=== PATIENT | female | born 1955 | race Caucasian/White ===

== ENCOUNTER 2020-02-07 11:48 | Emergency (ER) | payer MEDICARE, SELFPAY ==
--- NOTE | ~2020-02-07 | XR_ITS ---
EXAMINATION: XR chest 2V EXAM DATE: 02/07/2020 12:23 INDICATION: Cough. Exposure to pneumonia. TECHNIQUE: Frontal and lateral projections of the chest obtained and reviewed. There is no prior ernestine dy for comparison. FINDINGS: The lungs are clear. There are no pleural effusions. The cardiomediastinal silhouette is within normal limits. There is no pneumothorax suspected. There is upper lumbar fusion hardware. T here are cholecystectomy clips. Mild hyperinflation. IMPRESSION: No acute cardiopulmonary findings. Reviewed, dictated and finalized at location A.
--- NOTE | 2020-02-07 11:53 | ED.GENADULT ---
HPI - General Adult General Chief complaint: Upper Respiratory Infection Stated complaint: sinus and allergies Time Seen by Provider: 02/07/20 11:52 Source: patient Mode of arrival: ambulatory Limitations: no limitations History of Present Illness HPI narrative: 64-year-old female patient presents to the [facility] with complaints of cold symptoms and cough for the past week. Patient states that she recently traveled up here from [place] and thinks that her allergies are aggravating her. Patient states she has had some drainage to the back of her throat causing her to cough. Patient states she is also had some pressure to the face. Denies any fevers, body aches or chills. Patient states that she is an active smoker and has been smoking for about a pack a day for the past 30+ years. Patient denies any chest pain or shortness of breath. Denies any abdominal pain, nausea, vomiting or diarrhea. Patient states that she is visiting her sister which recently had pneumonia and had been tested for COVID but was negative. Patient states she has been using her sisters nebulizer as well to help with the coughing. Patient states she does have an albuterol inhaler that she has been using as well as [id number] Tylenol and sinus medication. Related Data Allergies Allergy/AdvReac Type Severity Reaction Status Date / Time Penicillins Allergy Rash Verified 02/07/20 12:17 sulfamethoxazole Allergy Hives Verified 02/07/20 12:18 [From Bactrim] trimethoprim [From Bactrim] Allergy Hives Verified 02/07/20 12:18 Review of Systems Review of Systems: Narrative: CONSTITUTIONAL: Denies fever, chills, or sweats. EYES: Denies visual changes, redness, or discharge. ENT: Positive rhinorrhea, congestion, denies sore throat, or otalgia. CARDIOVASCULAR: Denies chest pain, palpitations, or edema. RESPIRATORY: Positive productive cough or dyspnea. GASTROINTESTINAL: Denies abdominal pain, nausea, vomiting, or diarrhea. GENITOURINARY: Denies dysuria or hematuria. SKIN: Denies rash or itching. MUSCULOSKELETAL: Denies back pain, joint pain, or myalgia. NEUROLOGIC: Denies headache, numbness, or weakness. PSYCHIATRIC: Denies anxiety or depression. [facility] Past Medical History Medical History Anxiety GERD (gastroesophageal reflux disease) Surgical History Surgical History Hx of cholecystectomy Previous back surgery spacer put in lumbar spine Social History Social History Smoking status: Current every day smoker Tobacco type: cigarettes Comments At the time of my signature I agree with nursing past medical history, surgical, social, and family history. There is no relevant family history pertinent to the presenting complaint. Exam Narrative: Exam Narrative: GENERAL: Well-appearing, well-nourished, and in no acute distress. HEAD: Normocephalic, atraumatic. Tenderness noted to frontal maxillary sinuses on palpation EYES: PERRLA and EOMI. ENT: Nares with erythema and edema noted bilaterally, no rhinorrhea or epistaxis. Mucous membranes moist. Posterior pharynx with no erythema, tonsil enlargement, exudates or lesions present. Bilateral TMs are clear no erythema or foreign bodies to the canal. NECK: Supple. No lymphadenopathy CHEST: Clear to auscultation. No respiratory distress. Patient able talk in clear complete sentences. No tripoding noted. HEART: Regular rate and rhythm. No murmur heard. Normal peripheral pulses. ABDOMEN: Soft, nontender, nondistended, normal active bowel sounds. EXTREMITIES: Normal range of motion. No edema. SKIN: Warm, dry, no rash. NEURO: No focal deficits. Alert and oriented x3. Course Reevaluation(s) Reevaluation #1: Reevaluated patient after her x-ray resulted. Discussed with her that her x-ray is negative for pneumonia and her influenza is negative as we
[2020-02-07 12:02] VITALS: BP 141/72; PULSE 86; RESP 16; TEMP 37; O2SAT 98
== END 2020-02-07 12:38 | disposition home or self-care (01) ==
PROVIDERS: Emergency Provider Nurse Practitioner Family
DX: J06.9 Acute upper respiratory infection, unspecified (principal); J01.10 Acute frontal sinusitis, unspecified; Z20.828 Contact with and (suspected) exposure to other viral communicable diseases; F41.9 Anxiety disorder, unspecified; K21.9 Gastro-esophageal reflux disease without esophagitis; F17.200 Nicotine dependence, unspecified, uncomplicated
CPT/HCPCS: 71046; 87804; 99213; G0463

== ENCOUNTER 2021-04-09 14:46 | Emergency (ER) | payer MEDICARE, MEDICAID, SELFPAY ==
--- NOTE | ~2021-04-09 | XR_ITS ---
EXAMINATION: XR chest 2V DATE: 04/09/2021 16:07 INDICATION: Cough. TECHNIQUE: Frontal and lateral views of the chest were obtained. COMPARISON: Chest 2 views 02/07/2020 FINDINGS: There are airspace opacities in lingula. No pleural effusion or pneumothorax. The heart siz e is normal. Calcified left hilar and mediastinal lymph nodes are consistent with old granulomatous d isease. There are changes of anterior and posterior fusion procedures in lumbar spine. Surgical clips in the right upper quadrant are likely from cholecystectomy. IMPRESSION: 1. Airspace opacities in lingula, consistent with atelectasis versus pneumonia. Reviewed, dictated and finalized at location A. [employer]IL[employer] SPECIALIST
[2021-04-09 15:10] VITALS: BP 140/83; PULSE 74; RESP 20; TEMP 36.7; O2SAT 98
--- NOTE | 2021-04-09 15:39 | ED.URI ---
HPI - URI/Sore Throat General Chief Complaint: Upper Respiratory Infection Stated Complaint: Cough/Sneezing Source: patient Mode of arrival: ambulatory Limitations: no limitations History of Present Illness HPI Narrative: Patient is a 66-year-old female who presents with cough and congestion x2+ weeks. She reports facial pain and pressure. She reports dental extractions this week and she is currently taking clindamycin. She continues with productive cough. She denies chest pain or shortness of breath. She reports Covid vaccinated x2. MD elicited complaint: cough Related Data Home Medications Medication Instructions Recorded Confirmed albuterol sulfate 1 inh INHALATION QID PRN 02/07/20 04/09/21 buspirone 15 mg PO TID 04/09/21 04/09/21 cephalexin 500 mg PO QID 04/09/21 04/09/21 famotidine 20 mg PO BID 04/09/21 04/09/21 ibuprofen 800 mg PO TID 04/09/21 04/09/21 levothyroxine 50 mcg PO DAILY 04/09/21 04/09/21 Allergies Allergy/AdvReac Type Severity Reaction Status Date / Time Penicillins Allergy Rash Verified 04/09/21 16:19 sulfamethoxazole Allergy Hives Verified 04/09/21 16:19 [From Bactrim] trimethoprim [From Bactrim] Allergy Hives Verified 04/09/21 16:19 Review of Systems Review of Systems: CONSTITUTIONAL: Denies fever, chills, or sweats. EYES: Denies visual changes, redness, or discharge. ENT: Reports congestion and rhinorrhea, denies sore throat CARDIOVASCULAR: Denies chest pain, palpitations, or edema. RESPIRATORY: Reports cough, denies shortness of breath GASTROINTESTINAL: Denies abdominal pain, nausea, vomiting, or diarrhea. GENITOURINARY: Denies dysuria or hematuria. SKIN: Denies rash or itching. MUSCULOSKELETAL: Denies back pain, joint pain, or myalgia. NEUROLOGIC: Denies headache, numbness, dizziness, or weakness. PSYCHIATRIC: Denies anxiety or depression. [facility] Past Medical History Medical History (Updated 04/09/21 @ 16:04 by EMMA Son) Anxiety GERD (gastroesophageal reflux disease) Surgical History Surgical History Hx of cholecystectomy Previous back surgery spacer put in lumbar spine Social History Social History Smoking status: Current every day smoker Tobacco type: cigarettes Comments At the time of signature, I have reviewed and agree with nursing past medical, surgical, social, and family history unless otherwise noted. Please see nursing chart for further information. There is no relevant family history pertinent to the presenting complaint. Exam Narrative: GENERAL: Well-appearing, well-nourished, and in no acute distress. HEAD: Normocephalic, atraumatic. EYES: EOMI. No redness or drainage. Conjunctiva are normal. ENT: Mucous membranes pink and moist. Nares clear. No rhinorrhea. TMs normal bilaterally. Throat normal. Uvula midline. NECK: AROM. Supple. No lymphadenopathy. CHEST: No respiratory distress. Expiratory wheeze, coarse lung sounds bilaterally HEART: Regular rate and rhythm. No murmur appreciated. Normal peripheral pulses. EXTREMITIES: Normal range of motion. No edema. SKIN: Warm, dry, no rash. NEURO: No focal deficits. Alert and oriented x3. Gait steady. PSYCH: Normal affect. No signs of depression or anxiety. Course Vital Signs Vital signs: Vital Signs Temperature 36.7 C 04/09/21 15:10 Pulse Rate 74 04/09/21 15:10 Respiratory Rate 20 04/09/21 15:10 Blood Pressure 140/83 04/09/21 15:10 Pulse Oximetry 98 04/09/21 15:10 Temperature 36.7 C 04/09/21 15:10 Pulse Rate 74 04/09/21 15:10 Respiratory Rate 20 04/09/21 15:10 Blood Pressure 140/83 04/09/21 15:10 Pulse Oximetry 98 04/09/21 15:10 Reviewed MDM - URI/Sore Throat MDM Narrative Medical decision making narrative: Patient's chest x-ray shows atelectasis versus pneumonia. Patient started on antibiotics at this time. Patient is aware t
== END 2021-04-09 16:25 | disposition home or self-care (01) ==
PROVIDERS: Emergency Provider Nurse Practitioner; PCP Nurse Practitioner Family
DX: J06.9 Acute upper respiratory infection, unspecified (principal); F17.200 Nicotine dependence, unspecified, uncomplicated
CPT/HCPCS: 71046; 99213; G0463

== ENCOUNTER → 2021-05-08 12:31 | Outpatient (CLI) | payer MEDICARE, MEDICAID, SELFPAY ==
--- NOTE | ~2021-05-08 | XR_ITS ---
EXAMINATION: XR chest 2V DATE: 05/08/2021 12:47 INDICATION: Cough. Pneumonia. TECHNIQUE: Frontal and lateral views of the chest were obtained. COMPARISON: Chest 2 views 04/09/2021, 02/07/2020 FINDINGS: Calcified pulmonary nodules and calcified hilar lymph nodes are consistent with old granulo matous disease. There are airspace opacities in lingula. There is mild scarring at the lung apices. N o pleural effusion or pneumothorax. The heart size is normal. There are changes of anterior and poste rior fusion procedures in lumbar spine. Surgical clips in the right upper quadrant are likely from ch olecystectomy. IMPRESSION: 1. Persistent airspace opacities in lingula, consistent with atelectasis versus pneumonia. 2. Stable mild scarring at the lung apices. Reviewed, dictated and finalized at location A. 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
== END ==
PROVIDERS: PCP Nurse Practitioner Family; Visit Provider Nurse Practitioner Family
DX: R05.9 Cough, unspecified (principal); R91.8 Other nonspecific abnormal finding of lung field
CPT/HCPCS: 71046

== ENCOUNTER 2021-10-02 13:21 | Emergency (ER) | payer MEDICARE, MEDICAID, SELFPAY ==
[2021-10-02 13:33] VITALS: BP 115/65; PULSE 91; RESP 20; TEMP 37.4; O2SAT 98
--- NOTE | 2021-10-02 14:23 | ED.GENADULT ---
HPI - General Adult General Chief complaint: Upper Respiratory Infection Stated complaint: Sore Throat/Ear Pain Source: patient Mode of arrival: ambulatory Limitations: no limitations History of Present Illness HPI narrative: Patient presents for evaluation of sore throat for the past four days. She now has right sided otalgia and right sided cervical lymphadenopathy. She is a chronic productive cough of clear sputum, unchanged. She attributes her cough to smoking. She smokes approximately 1 pack/day. No fever, chills, nausea, vomiting, body aches. No recent sick contacts to her knowledge. She has been vaccinated for COVID. No additional complaints or concerns Related Data Home Medications Medication Instructions Recorded Confirmed albuterol sulfate 90 mcg/actuation 1 inh inhalation QID PRN Shortness 02/07/20 04/09/21 aerosol inhaler Of Breath Or Wheezing buspirone 15 mg tablet 15 mg PO TID 04/09/21 04/09/21 famotidine 20 mg tablet 20 mg PO BID 04/09/21 04/09/21 ibuprofen 800 mg tablet 800 mg PO TID 04/09/21 04/09/21 levothyroxine 50 mcg tablet 50 mcg PO DAILY 04/09/21 04/09/21 Allergies Allergy/AdvReac Type Severity Reaction Status Date / Time Penicillins Allergy Rash Verified 10/02/21 14:33 sulfamethoxazole Allergy Hives Verified 10/02/21 14:33 [From Bactrim] trimethoprim [From Bactrim] Allergy Hives Verified 10/02/21 14:33 Review of Systems Review of Systems: CONSTITUTIONAL: Denies fever, chills, or sweats. EYES: Denies visual changes, redness, or discharge. ENT: Reports right sided otalgia and sore throat. Reports right-sided cervical lymphadenopathy. Denies rhinorrhea CARDIOVASCULAR: Denies chest pain, palpitations, or edema. RESPIRATORY: Reports chronic productive cough of clear sputum, unchanged. Denies dyspnea. GASTROINTESTINAL: Denies abdominal pain, nausea, vomiting, or diarrhea. GENITOURINARY: Denies dysuria or hematuria. SKIN: Denies rash or itching. MUSCULOSKELETAL: Denies back pain, joint pain, or myalgia. NEUROLOGIC: Denies headache, numbness, dizziness, or weakness. PSYCHIATRIC: Denies anxiety or depression. [facility] Past Medical History Medical History Anxiety GERD (gastroesophageal reflux disease) Surgical History Surgical History Hx of cholecystectomy Previous back surgery spacer put in lumbar spine Family History Family History (Updated 10/02/21 @ 14:27 by ABIMBOLA GradyP, ) Mother Family history non-contributory Social History Social History Smoking packs per day: 1 Smoking cigarettes per day: 20.0 Smoking status: Current every day smoker Tobacco type: cigarettes Alcohol intake: never Substance use: never Gender identity (if verbalized by the patient): Female Spiritual care concerns: No Exam Narrative: GENERAL: Well-appearing, well-nourished, and in no acute distress. HEAD: Normocephalic, atraumatic. EYES: PERRLA and EOMI. ENT: Nares clear, no rhinorrhea or epistaxis. Mucous membranes moist. Oropharynx without tonsillar hypertrophy exudate or other lesions. There is posterior pharyngeal erythema. Uvula is midline Bilateral TMs pearly pang nonbulging NECK: Supple. No adenopathy or masses. No carotid bruits or JVD CHEST: Clear to auscultation. No respiratory distress. No wheezes rales or rhonchi HEART: Regular rate and rhythm. No murmur heard. Normal peripheral pulses. ABDOMEN: Soft, nontender, nondistended, normal active bowel sounds. EXTREMITIES: Normal range of motion. No edema. SKIN: Warm, dry, no rash. NEURO: No focal deficits. Alert and oriented x3. PSYCH: Normal mood and affect. Course Course Emergency Course: Is a 66-year-old female who present with complaints of a sore throat. Strep was negative. However, there is clinical suspicion for strep p
== END 2021-10-02 15:20 | disposition home or self-care (01) ==
PROVIDERS: Emergency Provider Nurse Practitioner; PCP Nurse Practitioner Family
DX: J02.9 Acute pharyngitis, unspecified (principal); F17.210 Nicotine dependence, cigarettes, uncomplicated; K21.9 Gastro-esophageal reflux disease without esophagitis; F41.9 Anxiety disorder, unspecified
CPT/HCPCS: 87081; 87880; 99213; G0463

== ENCOUNTER 2023-05-01 13:08 | Emergency (ER) | payer MEDICARE, MEDICAID, SELFPAY ==
[2023-05-01 13:15] VITALS: BP 143/64; PULSE 70; RESP 16; TEMP 36.6; O2SAT 97
--- NOTE | 2023-05-01 13:38 | ED.URI ---
HPI - URI/Sore Throat General Chief Complaint: Upper Respiratory Infection Stated Complaint: cough/throat Source: patient, RN notes reviewed and old records reviewed Mode of arrival: ambulatory Limitations: no limitations History of Present Illness HPI Narrative: 60-year-old female presents to [facility] with complaints productive cough, sinus congestion that started over 2 weeks ago. patient taking [id number] medications with no relief. Patient denies weakness, dizziness, chest pain, shortness of breath MD elicited complaint: cough and nasal congestion Onset (ago): week(s) (2) Consistency: constant Severity: moderate Related Data Home Medications Medication Instructions Recorded Confirmed albuterol sulfate 90 mcg/actuation 1 inh inhalation QID PRN Shortness 02/07/20 04/09/21 aerosol inhaler Of Breath Or Wheezing buspirone 15 mg tablet 15 mg PO TID 04/09/21 04/09/21 famotidine 20 mg tablet 20 mg PO BID 04/09/21 04/09/21 ibuprofen 800 mg tablet 800 mg PO TID 04/09/21 04/09/21 levothyroxine 50 mcg tablet 50 mcg PO DAILY 04/09/21 04/09/21 escitalopram oxalate 20 mg tablet mg 05/01/23 Allergies Allergy/AdvReac Type Severity Reaction Status Date / Time Penicillins Allergy Rash Verified 05/01/23 13:22 sulfamethoxazole Allergy Hives Verified 05/01/23 13:22 [From Bactrim] trimethoprim [From Bactrim] Allergy Hives Verified 05/01/23 13:22 Review of Systems Constitutional: Constitutional: Reports no additional constitutional complaints, Denies body ache(s), Denies chills, Denies fatigue, Denies fever(s) and Reports headache(s) Eyes: Eyes: Reports no additional eye complaints and Denies blurry vision ENT: Reports system reviewed and no additional complaints, except as documented, Reports as per HPI, Denies vertigo, Denies dizziness, Denies ear discharge, Denies otalgia, Denies facial pain, Denies headache(s), Reports nasal congestion, Reports nasal discharge ( thick yellow), Reports sinus pain, Reports sinus pressure and Denies sore throat Cardiovascular: Cardiovascular: Reports no additional cardiovascular complaints, Denies chest pain, Denies chest pain at rest, Denies rapid heart rate and Denies dyspnea Respiratory: Respiratory: Reports no additional respiratory complaints, Reports chest congestion, Reports cough, Denies pain on inspiration, Reports pain with cough and Denies dyspnea Gastrointestinal: Gastrointestinal: Denies abdominal pain, Denies diarrhea, Denies nausea and Denies vomiting Integumentary/Breasts: Skin/Breast: Denies rash Neurologic: Reports system reviewed and no additional complaints, except as documented, Denies vertigo, Denies dizziness and Denies headache(s) Endocrine: Endocrine: Denies fatigue PMFSH Past Medical History Medical History (Updated 05/01/23 @ 13:41 by Romi Benedict APRN) Anxiety GERD (gastroesophageal reflux disease) Surgical History Surgical History Hx of cholecystectomy Previous back surgery spacer put in lumbar spine Family History Family History Mother Family history non-contributory Social History Social History Smoking packs per day: 1 Smoking cigarettes per day: 20.0 Smoking status: Current every day smoker Tobacco type: cigarettes Alcohol intake: never Substance use: never Gender identity (if verbalized by the patient): Female Spiritual care concerns: No Comments At the time of my signature, I reviewed and agree with the nursing past medical, surgical, social, and family history. There is no relevant family history pertinent to the patient complaint. Exam Const: General: cooperative, healthy appearing, no acute distress and well nourished Nutritional Appearance: well nourished Orientation/consciousness: patient oriented x3 Limitations: no limitations HE
== END 2023-05-01 13:43 | disposition home or self-care (01) ==
PROVIDERS: Emergency Provider Registered Nurse; PCP Nurse Practitioner Family
DX: J20.9 Acute bronchitis, unspecified (principal); F17.210 Nicotine dependence, cigarettes, uncomplicated; F41.9 Anxiety disorder, unspecified; K21.9 Gastro-esophageal reflux disease without esophagitis
CPT/HCPCS: 99213; G0463

== ENCOUNTER 2024-11-29 12:52 | Emergency (ER) | payer MEDICARE, MEDICAID, SELFPAY ==
--- NOTE | ~2024-11-29 | XR_ITS ---
EXAM: XR hip LT 2V w AP pelvis DATE: 11/29/2024 13:17 HISTORY: pain . COMPARISON: None available. FINDINGS: Osteopenia. Partially visualized lumbar fusion hardware. No fracture or dislocation. No ly tic or blastic lesion. Lumbar degenerative disc disease. Mild bilateral hip osteoarthritis. Mild scat tered pelvic and hip enthesopathy No erosion or periosteal change. Vascular calcifications. IMPRESSION: No acute osseous finding in the pelvis or left hip. Reviewed, dictated and finalized at location K.
--- OUTSIDE RECORDS SUMMARY | 2024-11-29 12:55 | XMS_ITS ---
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 Start: 06-01-2024 07:49-0500 End: 06-01-2024 23:59-0500 Patient encounter procedure MD Ravindra Yin MD [facility] Start: 01-28-2024 09:42-0400 End: 01-28-2024 23:59-0400 Patient encounter procedure MD Ravindra Yin MD [facility] Start: 01-21-2024 12:45-0400 Patient encounter procedure MD Ravindra Yin MD [facility] Start: 01-21-2024 09:45-0400 End: 01-21-2024 23:59-0400 Patient encounter procedure MD Ravindra Yin MD [facility] Start: 01-07-2024 12:090400 End: 01-08-2024 23:59-0400 Patient encounter procedure [facility] Start: 12-11-2023 07:59-0400 End: 12-11-2023 23:59-0400 Patient encounter procedure MD Ravindra Yin MD [facility] Start: 12-10-2023 [id number] End: 12-10-2023 23:59-0400 Patient encounter procedure [facility] Medications Current Medications Medication Drug Class(es) Dates Sig (Normalized) Sig (Original) alendronate (1 source) Bisphosphonate Start: 12-11-2023 Completed/Discontinued Medications Medication Drug Class(es) Dates Sig (Normalized) Sig (Original) acetaminophen / HYDROcodone (2 sources) Opioid Agonist Start: 01-20-2024 End: 01-27-2024 Additional Source Comments FOR RECORDS PERTAINING TO PATIENTS WHO ARE OR HAVE BEEN ENROLLED IN A CHEMICAL DEPENDENCY/SUBSTANCEABUSE PROGRAM, SOME INFORMATION MAY BE OMITTED. This clinical summary was aggregated from multiple sources. Caution should be exercised in using it in the provision of clinical care. This summary normalizes information from multiple sources, and as a consequence, information in this document may materially change the coding, format and clinical context of patient data. In addition, data may be omitted in some cases. CLINICAL DECISIONS SHOULD BE BASED ON THE PRIMARY CLINICAL RECORDS. [employer] provides no warranty or guarantee of the accuracy or completeness of information in this document.The following information is based on time limited clinical information
--- OUTSIDE RECORDS SUMMARY | 2024-11-29 12:55 | XMS_ITS | Data Portability ---
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 Plan of Treatment Reminders Order Date Submit Date Provider Last Modified By Organization Details Last Modified Time Details Appointments None recorde d. Lab CBC w/ auto diff 2023 024 [facility], [address] [place] [address], [address], 12:13:47 CMP, serum or plasma 2023 024 [facility], [address] [place] [address], [address], 4 12:13:44 lipid panel, serum 2023 024 [facility], [address] [place] [address], [address], 4 12:13:43 TSH, ultra-s ensitiv e, serum 2023 024 [facility], [address] [place] [address], [address], 4 12:13:46 CBC w/ auto diff 2023 024 [facility], [address] [place] [address], [address], 5 03:09:05 CMP, serum or plasma 2023 024 [facility], [address] [place] [address], [place], [address], 5 03:09:04 lipid panel, serum 2023 024 [facility], [address] [place] [address], [place], [address], 5 03:09:03 TSH, ultra-s ensitiv e, serum 2023 024 [facility], [address] [place] [address], [place], [address], 5 03:09:05 Referral None recorde d. Procedures None recorde d. Surgeries None recorde d. Imaging None recorde d. Medication Orders flutica sone propion ate 50 mcg/act uation nasal spray,s uspensi on 2024 025 [facility], [address] [place], [address], 5 14:57:06 Astepro Allergy 205.5 mcg (0.15 %) nasal spray 2024 025 [facility], [address] [place], [address], 5 14:58:29 escital opram 20 mg tablet 2024 025 [facility], [address] [place], [address], 5 14:57:06 buspiro ne 15 mg tablet 2024 025 [facility], [address] [place], [address], 5 14:57:06 famotid ine 20 mg tablet 2024 025 [facility], [address] [place], [address], 5 14:57:10 levothy roxine 50 mcg tablet 2024 025 [facility], [address] [place], [address], 5 14:57:04 albuter ol sulfate HFA 90 mcg/act uation aerosol inhaler 2024 [facility], [address] [place], [address], 5 14:57:07 doxycyc line hyclate 100 mg capsule 2023 [facility], [address] [place] [address], [address], 5 14:22:56 benzona benedict 100 mg capsule 2023 025 [facility], [address] [place], [address], 5 14:22:48 flutica sone propion ate 50 mcg/act uation nasal spray,s [facility]pensi on [facility]23 [facility] [address] [place], [address], 5 14:23:18 escital opram 20 mg tablet 2023 [facility], [address] [place], [address], 4 17:34:46 buspiro ne 15 mg tablet 2023 024 [facility], [address] [place], [address], 4 17:34:51 famotid ine 20 mg tablet 2023 024 [facility], [address] [place], [address], 4 17:34:52 levothy roxine 50 mcg tablet 2023 024 [facility], [address] [place], [address], 4 23:32:45 albuter ol sulfate HFA 90 mcg/act uation aerosol inhaler 2023 025 [facility], [address] [place], [address], 5 14:23:48 flutica sone propion ate 50 mcg/act uation nasal spray,s uspensi on 2023 024 [facility], [address] [place], [address], 4 11:13:38 escital opram 20 mg tablet 2023 024 [facility], [address] [place], [address], 4 11:13:45 buspiro ne 15 mg tablet 2023 024 [facility], [address] [place], [address], 4 11:13:50 famotid ine 20 mg tablet 2023 024 [facility], [address] [place], [address], 4 11:13:40 levothy roxine 50 mcg tablet 2023 024 [facility], [address] [place], [address], 4 11:13:40 albuter ol sulfate HFA 90 mcg/act uation aerosol inhaler 2023 024 [facility], [address] [place] [address], [address], 5 14:23:02 flutica sone propion ate 50 mcg/act uation nasal spray,s uspensi on 2022 023 [facility], [address] [place] [address], [address], 3 11:21:46 doxycyc line monohyd rate 100 mg capsule 2022 023 [facility], [address] [place] [address], [address], 4 10:50:26 escital opram 20 mg tablet 2022 023 [facility], [address] [place] [address], [address], 3 11:20:49 buspiro ne 15 mg tablet 2022 023 [facility], [address] [place] [address], [address], 3 11:20:49 famotid ine 20 mg tablet 2022 023 [facility], [address] [place] [address], [address], 3 11:20:47 levothy roxine 50 mcg tablet 2022 023 [facility], [address] [place] [address], [address], 3 11:20:46 albuter ol sulfate HFA 90 mcg/act uation aerosol inhaler 2022 023 [facility], [address] [place] [address], [address], 14:23:02 Patient TargetsNo targets recorded. Patient Instructions Encounter Date Encounter Id Patient Instructions Last Modified By Organization Details Last Modified Time 01/24/2023 [id number] back pain: care instructions Not available 01/24/2023 11:20:29 back care and preventing injuries: care instructions Not available 01/24/2023 11:20:28 Quitting Tobacco : Care Instructions Not available 01/24/2023 11:20:29 A healthy lifest yle: care instructions Not available 01/24/2023 11:20:28 learning about m ood disorders Not available 01/24/2023 11:20:29 gastroesophageal reflux disease (GERD): care instructions Not available 01/24/2023 11:20:29 hypothyroidism: care instructions Not available 01/24/2023 11:20:28 reactive airway disease: care instructions Not available 01/24/2023 11:20:28 COPD and asthma: care instructions Not available 01/24/2023 11:20:28 Cont on current medications. Not available 01/24/2023 11:08:50 f/u 6 months DWP barriers to care: none Not available 01/24/2023 11:07:35 08/01/2023 [id number] back pain: care instructions Not available 08/01/2023 11:13:30 back care and preventing injuries: care instructions Not available 08/01/2023 11:13:30 Quitting Tobacco : Care Instructions Not available 08/01/2023 11:13:30 A healthy lifest yle: care instructions Not available 08/01/2023 11:13:30 learning about m ood disorders Not available 08/01/2023 11:13:30 gastroesophageal reflux disease (GERD): care instructions Not available 08/01/2023 11:13:30 hypothyroidism: care instructions Not available 08/01/2023 11:13:30 reactive airway disease: care instructions Not available 08/01/2023 11:13:30 COPD and asthma: care instructions Not available 08/01/2023 11:13:30 Cont on current medications. - Avoid heavy lifting and over-exertion. - Avoid bed-rest do some gentle stretching and continue with normal activities. - Use ice to relieve pain, 15 minutes every 2 4 hours. - Use heat to relax muscles, 15 minutes every 2 4 hours. - Sleep on a firm surface and avoid lying on the sofa. Not available 08/01/2023 11:05:51 f/u 6 months DWP barriers to care: none Not available 08/01/2023 11:14:02 02/17/2024 [id number] back pain: care instructions Not available 02/17/2024 17:34:38 back care and preventing injuries: care instructions Not available 02/17/2024 17:34:38 Quitting Tobacco : Care Instructions Not available 02/17/2024 17:34:38 A healthy lifest yle: care instructions Not available 02/17/2024 17:34:39 learning about m ood disorders Not available 02/17/2024 17:34:38 gastroesophageal reflux disease (GERD): care instructions Not available 02/17/2024 17:34:38 hypothyroidism: care instructions Not available 02/17/2024 17:34:38 reactive airway disease: care instructions Not available 02/17/2024 17:34:38 COPD and asthma: care instructions Not available 02/17/2024 17:34:39 Increase intake of fresh fruits, and vegetables. Avoid packaged foods and fast foods. Follow a low salt diet, drink at least 8-10 8oz glasses of water a day, exercise most days of the week. Take all medications as prescribed. Keep appointments with PCP and all specialists. Not available 02/19/2024 15:50:02 f/u 6 months DWP barriers to care: none Not available 02/17/2024 17:13:01 03/23/2024 [id number] Acute Sinusitis: Care Instructions Not available 03/23/2024 15:30:44 bronchitis: care instructions Not available 03/23/2024 15:30:44 Mucinex and othe r OTC cold/cough remedies are fine to take, increase fluids and have good handwashing. Get plenty of rest. Not available 03/23/2024 15:31:10 Take all antibio tics prescribed to you. If any fever or increase in pain, call/return to office. Not available 03/23/2024 15:31:16 08/17/2024 [id number] back pain: care instructions Not available 08/17/2024 14:56:58 back care and preventing injuries: care instructions Not available 08/17/2024 14:56:58 Quitting Tobacco : Care Instructions Not available 08/17/2024 14:56:58 A healthy lifest yle: care instructions Not available 08/17/2024 14:56:58 learning about m ood disorders Not available 08/17/2024 14:56:58 gastroesophageal reflux disease (GERD): care instructions Not available 08/17/2024 14:56:58 hypothyroidism: care instructions Not available 08/17/2024 14:56:58 reactive airway disease: care instructions Not available 08/17/2024 14:56:57 COPD and asthma: care instructions Not available 08/17/2024 14:56:58 Increase intake of fresh fruits, and vegetables. Avoid packaged foods and fast foods. Follow a low salt diet, drink at least 8-10 8oz glasses of water a day, exercise most days of the week. Take all medications as prescribed. Keep appointments with PCP and all specialists. Not available 08/17/2024 14:31:35 f/u 6 months DWP barriers to care: none Not available 08/17/2024 14:31:35 Reason for Referral None Reported. Results Created Date Observation Date Name Description Value Unit Range Abnormal Flag Note LastModifiedBy Organization Detail LastModifiedTime 03/09/20 24 03/10/2024 LIPID PANEL cholesterol, total 211 mg/dL 100-19 9 above high normal Not Available [facility] ([facility]) [address] [place], [address], 03/10/2024 12:13:43 03/09/20 24 03/10/2024 LIPID PANEL triglyceride s 127 mg/dL 0-149 Not Available [facility] ([facility]) [address] [place], [address], 03/10/2024 12:13:43 03/09/20 24 03/10/2024 LIPID PANEL HDL cholesterol 58 mg/dL >39 Not Available [facility] ([facility]) [address] [place], [address], 03/10/2024 12:13:43 03/09/20 24 03/10/2024 LIPID PANEL VLDL cholesterol lourdes 23 mg/dL 5-40 Not Available [facility] ([facility]) [address] [place], [address], 03/10/2024 12:13:43 03/09/2003/10/2024 LIPID PANEL LDL chol calc ([facility]) 130 mg/dL 0-99 above high normal Not Available [facility] ([facility]) [address] [place], [address], 03/10/2024 12:13:43 03/09/20 24 03/10/2024 COMP. METAB OLIC PANEL (14) glucose 137 mg/dL 70-99 above high normal Not Available [facility] ([facility]) [address] [place], [address], 03/10/2024 12:13:44 03/09/20 24 03/10/2024 COMP. METAB OLIC PANEL (14) BUN 16 mg/dL 8-27 Not Available [facility] ([facility]) [address] [place], [address], 03/10/2024 12:13:44 03/09/20 24 03/10/2024 COMP. METAB OLIC PANEL (14) creatinine 1.09 mg/dL 0.57-1 .00 above high normal Not Available [facility] ([facility]) [address] [facility], [place], [address], 03/10/2024 12:13:44 03/09/20 24 03/10/2024 COMP. METAB OLIC PANEL (14) eGFR 55 mL/mi n/1.7 3 >59 below low normal Not Available [facility] ([facility]) [address] [facility], [place], [address], 03/10/2024 12:13:44 03/09/20 24 03/10/2024 COMP. METAB OLIC PANEL (14) BUN/creatini ne ratio 15 12-28 Not Available [facility] ([facility]) [address] [facility], [place], [address], 03/10/2024 12:13:44 03/09/20 24 03/10/2024 COMP. METAB OLIC PANEL (14) sodium 140 mmol/ L 134-14 4 Not Available [facility] ([facility]) [address] [place], [address], 03/10/2024 12:13:44 03/09/20 24 03/10/2024 COMP. METAB OLIC PANEL (14) potassium 4.2 mmol/ L 3.5-5. 2 Not Available [facility] ([facility]) [address] [facility], [place], [address], 03/10/2024 12:13:44 03/09/20 24 03/10/2024 COMP. METAB OLIC PANEL (14) chloride 104 mmol/ L 96-106 Not Available [facility] ([facility]) [address] [facility], [place], [address], 03/10/2024 12:13:44 03/09/20 24 03/10/2024 COMP. METAB OLIC PANEL (14) carbon dioxide, total 19 mmol/ L 20-29 below low normal Not Available [facility] ([facility]) [address] [facility], [place], [address], 03/10/2024 12:13:44 03/09/20 24 03/10/2024 COMP. METAB OLIC PANEL (14) calcium 9.1 mg/dL 8.7-10 .3 Not Available [facility] ([facility]) [address] [facility], [place], [address], 03/10/2024 12:13:44 03/09/20 24 03/10/2024 COMP. METAB OLIC PANEL (14) protein, total 7.2 g/dL 6.0-8. 5 Not Available [facility] ([facility]) [address] [facility], [place], [address], 03/10/2024 12:13:44 03/09/20 24 03/10/2024 COMP. METAB OLIC PANEL (14) albumin 4.3 g/dL 3.9-4. 9 Not Available [facility] ([facility]) [address] [place], [address], 03/10/2024 12:13:44 03/09/20 24 03/10/2024 COMP. METAB OLIC PANEL (14) globulin, total 2.9 g/dL 1.5-4. 5 Not Available [facility] ([facility]) [address] [facility], [place], [address], 03/10/2024 12:13:44 03/09/20 24 03/10/2024 COMP. METAB OLIC PANEL (14) bilirubin, total <0.2 mg/dL 0.0-1. 2 Not Available [facility] ([facility]) [address] [facility], [place], [address], 03/10/2024 12:13:44 03/09/20 24 03/10/2024 COMP. METAB OLIC PANEL (14) alkaline phosphatase 77 IU/L 44-121 Not Available [facility] ([facility]) [address] [facility], [place], [address], 03/10/2024 12:13:44 03/09/20 24 03/10/2024 COMP. METAB OLIC PANEL (14) AST (SGOT) 13 IU/L 0-40 Not Available [facility] ([facility]) [address] [place], [address], 03/10/2024 12:13:44 03/09/20 24 03/10/2024 COMP. METAB OLIC PANEL (14) ALT (SGPT) 13 IU/L 0-32 Not Available [facility] ([facility]) [address] [place], [address], 03/10/2024 12:13:44 03/09/20 24 03/10/2024 TSH RFX ON ABNOR MAL TO FREE T4 TSH 0.299 uIU/m L 0.450- 4.500 below low normal Not Available [facility] ([facility]) [address] [place], [address], 03/10/2024 12:13:46 03/09/20 24 03/10/2024 T4F T4,free (direct) 1.40 NG/dL 0.82-1 .77 Not Available [facility] ([facility]) [address] [place], [address], 03/10/2024 12:13:47 03/09/20 24 03/10/2024 CBC WITH DIFFE RENTI AL/PL ATELE T WBC 6.8 x10e3 /uL 3.4-10 .8 Not Available [facility] ([facility]) [address] [place], [address], 03/10/2024 12:13:47 03/09/20 24 03/10/2024 CBC WITH DIFFE RENTI AL/PL ATELE T RBC 4.44 x10e6 /uL 3.77-5 .28 Not Available [facility] ([facility]) [address] [facility], [place], [address], 03/10/2024 12:13:47 03/09/20 24 03/10/2024 CBC WITH DIFFE RENTI AL/PL ATELE T hemoglobin 13.7 g/dL 11.1-1 5.9 Not Available [facility] ([facility]) [address] [facility], [place], [address], 03/10/2024 12:13:47 03/09/20 24 03/10/2024 CBC WITH DIFFE RENTI AL/PL ATELE T hematocrit 41.6 % 34.0-4 6.6 Not Available [facility] ([facility]) [address] [facility], [place], [address], 03/10/2024 12:13:47 03/09/20 24 03/10/2024 CBC WITH DIFFE RENTI AL/PL ATELE T MCV 94 fL 79-97 Not Available [facility] ([facility]) [address] [place], [address], 03/10/2024 12:13:47 03/09/20 24 03/10/2024 CBC WITH DIFFE RENTI AL/PL ATELE T MCH 30.9 pg 26.6-3 3.0 Not Available [facility] ([facility]) [address] [facility], [place], [address], 03/10/2024 12:13:47 03/09/20 24 03/10/2024 CBC WITH DIFFE RENTI AL/PL ATELE T MCHC 32.9 g/dL 31.5-3 5.7 Not Available [facility] ([facility]) [address] [facility], [place], [address], 03/10/2024 12:13:47 03/09/20 24 03/10/2024 CBC WITH DIFFE RENTI AL/PL ATELE T RDW 13.0 % 11.7-1 5.4 Not Available [facility] ([facility]) [address] [facility], [place], [address], 03/10/2024 12:13:47 03/09/20 24 03/10/2024 CBC WITH DIFFE RENTI AL/PL ATELE T platelets 345 x10e3 /uL 150-45 0 Not Available [facility] ([facility]) [address] [facility], [place], [address], 03/10/2024 12:13:47 03/09/20 24 03/10/2024 CBC WITH DIFFE RENTI AL/PL ATELE T neutrophils 76 % notest ab. Not Available [facility] ([facility]) [address] [facility], [place], [address], 03/10/2024 12:13:47 03/09/20 24 03/10/2024 CBC WITH DIFFE RENTI AL/PL ATELE T lymphs 18 % notest ab. Not Available [facility] ([facility]) [address] [facility], [place], [address], 03/10/2024 12:13:47 03/09/20 24 03/10/2024 CBC WITH DIFFE RENTI AL/PL ATELE T monocytes 6 % notest ab. Not Available [facility] ([facility]) [address] [facility], [place], [address], 03/10/2024 12:13:47 03/09/20 24 03/10/2024 CBC WITH DIFFE RENTI AL/PL ATELE T eos 0 % notest ab. Not Available [facility] ([facility]) [address] [facility], [place], [address], 03/10/2024 12:13:47 03/09/20 24 03/10/2024 CBC WITH DIFFE RENTI AL/PL ATELE T basos 0 % notest ab. Not Available [facility] ([facility]) [address] [facility], [place], [address], 03/10/2024 12:13:47 03/09/20 24 03/10/2024 CBC WITH DIFFE RENTI AL/PL ATELE T neutrophils (absolute) 5.2 x10e3 /uL 1.4-7. 0 Not Available [facility] ([facility]) [address] [facility], [place], [address], 03/10/2024 12:13:47 03/09/20 24 03/10/2024 CBC WITH DIFFE RENTI AL/PL ATELE T lymphs (absolute) 1.2 x10e3 /uL 0.7-3. 1 Not Available [facility] ([facility]) [address] [facility], [place], [address], 03/10/2024 12:13:47 03/09/20 24 03/10/2024 CBC WITH DIFFE RENTI AL/PL ATELE T monocytes(ab solute) 0.4 x10e3 /uL 0.1-0. 9 Not Available [facility] ([facility]) [address] [facility], [place], [address], 03/10/2024 12:13:47 03/09/20 24 03/10/2024 CBC WITH DIFFE RENTI AL/PL ATELE T eos (absolute) 0.0 x10e3 /uL 0.0-0. 4 Not Available [facility] ([facility]) [address] [facility], [place], [address], 03/10/2024 12:13:47 03/09/20 24 03/10/2024 CBC WITH DIFFE RENTI AL/PL ATELE T baso (absolute) 0.0 x10e3 /uL 0.0-0. 2 Not Available [facility] ([facility]) [address] [facility], [place], [address], 03/10/2024 12:13:47 03/09/20 24 03/10/2024 CBC WITH DIFFE RENTI AL/PL ATELE T immature granulocytes 0 % notest ab. Not Available [facility] ([facility]) [address] [facility], [place], [address], 03/10/2024 12:13:47 03/09/20 24 03/10/2024 CBC WITH DIFFE RENTI AL/PL ATELE T immature grans (abs) 0.0 x10e3 /uL 0.0-0. 1 Not Available [facility] ([facility]) [address] [facility], [place], [address], 03/10/2024 12:13:47 07/01/19 25 07/02/2024 LIPID PANEL cholesterol, total 222 mg/dL 100-19 9 above high normal Not Available [facility] ([facility]) [address] [facility], [place], [address], 07/02/2024 03:09:03 07/01/19 25 07/02/2024 LIPID PANEL triglyceride s 138 mg/dL 0-149 Not Available [facility] ([facility]) [address] [place], [address], 07/02/2024 03:09:03 07/01/19 25 07/02/2024 LIPID PANEL HDL cholesterol 57 mg/dL >39 Not Available [facility] ([facility]) [address] [place], [address], 07/02/2024 03:09:03 07/01/19 25 07/02/2024 LIPID PANEL VLDL cholesterol lourdes 25 mg/dL 5-40 Not Available [facility] ([facility]) [address] [place], [address], 07/02/2024 03:09:03 07/01/19 25 07/02/2024 LIPID PANEL LDL chol calc ([facility]) 140 mg/dL 0-99 above high normal Not Available [facility] ([facility]) [address] [place], [address], 07/02/2024 03:09:03 07/01/19 25 07/02/2024 COMP. METAB OLIC PANEL (14) glucose 94 mg/dL 70-99 Not Available [facility] ([facility]) [address] [place], [address], 07/02/2024 03:09:04 07/01/19 25 07/02/2024 COMP. METAB OLIC PANEL (14) BUN 12 mg/dL 8-27 Not Available [facility] ([facility]) [address] [place], [address], 07/02/2024 03:09:04 07/01/19 25 07/02/2024 COMP. METAB OLIC PANEL (14) creatinine 0.82 mg/dL 0.57-1 .00 Not Available [facility] ([facility]) [address] [place], [address], 07/02/2024 03:09:04 07/01/19 25 07/02/2024 COMP. METAB OLIC PANEL (14) eGFR 77 mL/mi n/1.7 3 >59 Not Available [facility] ([facility]) [address] [place], [address], 07/02/2024 03:09:04 07/01/19 25 07/02/2024 COMP. METAB OLIC PANEL (14) BUN/creatini ne ratio 15 12-28 Not Available [facility] ([facility]) [address] [place], [address], 07/02/2024 03:09:04 07/01/19 25 07/02/2024 COMP. METAB OLIC PANEL (14) sodium 139 mmol/ L 134-14 4 Not Available [facility] ([facility]) [address] [place], [address], 07/02/2024 03:09:04 07/01/19 25 07/02/2024 COMP. METAB OLIC PANEL (14) potassium 4.5 mmol/ L 3.5-5. 2 Not Available [facility] ([facility]) [address] [place], [address], 07/02/2024 03:09:04 07/01/19 25 07/02/2024 COMP. METAB OLIC PANEL (14) chloride 103 mmol/ L 96-106 Not Available [facility] ([facility]) [address] [place], [address], 07/02/2024 03:09:04 07/01/19 25 07/02/2024 COMP. METAB OLIC PANEL (14) carbon dioxide, total 23 mmol/ L 20-29 Not Available [facility] ([facility]) [address] [place], [address], 07/02/2024 03:09:04 07/01/19 25 07/02/2024 COMP. METAB OLIC PANEL (14) calcium 9.4 mg/dL 8.7-10 .3 Not Available [facility] ([facility]) [address] [place], [address], 07/02/2024 03:09:04 07/01/19 25 07/02/2024 COMP. METAB OLIC PANEL (14) protein, total 7.2 g/dL 6.0-8. 5 Not Available [facility] ([facility]) [address] [place], [address], 07/02/2024 03:09:04 07/01/19 25 07/02/2024 COMP. METAB OLIC PANEL (14) albumin 4.3 g/dL 3.9-4. 9 Not Available [facility] ([facility]) [address] [place], [address], 07/02/2024 03:09:04 07/01/19 25 07/02/2024 COMP. METAB OLIC PANEL (14) globulin, total 2.9 g/dL 1.5-4. 5 Not Available [facility] ([facility]) [address] [place], [address], 07/02/2024 03:09:04 07/01/19 25 07/02/2024 COMP. METAB OLIC PANEL (14) bilirubin, total 0.2 mg/dL 0.0-1. 2 Not Available [facility] ([facility]) [address] [place], [address], 07/02/2024 03:09:04 07/01/19 25 07/02/2024 COMP. METAB OLIC PANEL (14) alkaline phosphatase 80 IU/L 44-121 Not Available [facility] ([facility]) [address] [place], [address], 07/02/2024 03:09:04 07/01/19 25 07/02/2024 COMP. METAB OLIC PANEL (14) AST (SGOT) 16 IU/L 0-40 Not Available [facility] ([facility]) [address] [place], [address], 07/02/2024 03:09:04 07/01/19 25 07/02/2024 COMP. METAB OLIC PANEL (14) ALT (SGPT) 11 IU/L 0-32 Not Available [facility] ([facility]) [address] [place], [address], 07/02/2024 03:09:04 07/01/19 25 07/02/2024 TSH RFX ON ABNOR MAL TO FREE T4 TSH 1.260 uIU/m L 0.450- 4.500 Not Available [facility] ([facility]) [address] [place], [address], 07/02/2024 03:09:05 07/01/19 25 07/01/2024 CBC WITH DIFFE RENTI AL/PL ATELE T WBC 5.5 x10e3 /uL 3.4-10 .8 Not Available [facility] ([facility]) [address] [place], [address], 07/02/2024 03:09:05 07/01/19 25 07/01/2024 CBC WITH DIFFE RENTI AL/PL ATELE T RBC 4.93 x10e6 /uL 3.77-5 .28 Not Available [facility] ([facility]) [address] [place], [place], [address], 07/02/2024 03:09:05 07/01/1907/01/2024 CBC WITH DIFFE RENTI AL/PL ATELE T hemoglobin 14.7 g/dL 11.1-1 5.9 Not Available [facility] ([facility]) [address] [place], [address], 07/02/2024 03:09:05 07/01/1907/01/2024 CBC WITH DIFFE RENTI AL/PL ATELE T hematocrit 45.2 % 34.0-4 6.6 Not Available [facility] ([facility]) [address] [place], [address], 07/02/2024 03:09:05 07/01/19 25 07/01/2024 CBC WITH DIFFE RENTI AL/PL ATELE T MCV 92 fL 79-97 Not Available [facility] ([facility]) [address] [place], [address], 07/02/2024 03:09:05 07/01/1907/01/2024 CBC WITH DIFFE RENTI AL/PL ATELE T MCH 29.8 pg 26.6-3 3.0 Not Available [facility] ([facility]) [address] [place], [address], 07/02/2024 03:09:05 07/01/1907/01/2024 CBC WITH DIFFE RENTI AL/PL ATELE T MCHC 32.5 g/dL 31.5-3 5.7 Not Available [facility] ([facility]) [address] [place], [address], 07/02/2024 03:09:05 07/01/19 25 07/01/2024 CBC WITH DIFFE RENTI AL/PL ATELE T RDW 13.4 % 11.7-1 5.4 Not Available [facility] ([facility]) [address] [facility], [place], [address], 07/02/2024 03:09:05 07/01/19 25 07/01/2024 CBC WITH DIFFE RENTI AL/PL ATELE T platelets 396 x10e3 /uL 150-45 0 Not Available [facility] ([facility]) [address] [facility], [place], [address], 07/02/2024 03:09:05 07/01/19 25 07/01/2024 CBC WITH DIFFE RENTI AL/PL ATELE T neutrophils 37 % notest ab. Not Available [facility] ([facility]) [address] [facility], [place], [address], 07/02/2024 03:09:05 07/01/19 25 07/01/2024 CBC WITH DIFFE RENTI AL/PL ATELE T lymphs 50 % notest ab. Not Available [facility] ([facility]) [address] [facility], [place], [address], 07/02/2024 03:09:05 07/01/19 25 07/01/2024 CBC WITH DIFFE RENTI AL/PL ATELE T monocytes 9 % notest ab. Not Available [facility] ([facility]) [address] [facility], [place], [address], 07/02/2024 03:09:05 07/01/19 25 07/01/2024 CBC WITH DIFFE RENTI AL/PL ATELE T eos 3 % notest ab. Not Available [facility] ([facility]) [address] [facility], [place], [address], 07/02/2024 03:09:05 07/01/19 25 07/01/2024 CBC WITH DIFFE RENTI AL/PL ATELE T basos 1 % notest ab. Not Available [facility] ([facility]) [address] [place], [address], 07/02/2024 03:09:05 07/01/19 25 07/01/2024 CBC WITH DIFFE RENTI AL/PL ATELE T neutrophils (absolute) 2.0 x10e3 /uL 1.4-7. 0 Not Available [facility] ([facility]) [address] [place], [address], 07/02/2024 03:09:05 07/01/19 25 07/01/2024 CBC WITH DIFFE RENTI AL/PL ATELE T lymphs (absolute) 2.8 x10e3 /uL 0.7-3. 1 Not Available [facility] ([facility]) [address] [place], [address], 07/02/2024 03:09:05 07/01/19 25 07/01/2024 CBC WITH DIFFE RENTI AL/PL ATELE T monocytes(ab solute) 0.5 x10e3 /uL 0.1-0. 9 Not Available [facility] ([facility]) [address] [place], [address], 07/02/2024 03:09:05 07/01/19 25 07/01/2024 CBC WITH DIFFE RENTI AL/PL ATELE T eos (absolute) 0.1 x10e3 /uL 0.0-0. 4 Not Available [facility] ([facility]) [address] [place], [address], 07/02/2024 03:09:05 07/01/1907/01/2024 CBC WITH DIFFE RENTI AL/PL ATELE T baso (absolute) 0.1 x10e3 /uL 0.0-0. 2 Not Available [facility] ([facility]) [address] [place], [address], 07/02/2024 03:09:05 07/01/19 25 07/01/2024 CBC WITH DIFFE RENTI AL/PL ATELE T immature granulocytes 0 % notest ab. Not Available [facility] ([facility]) [address] [facility], [place], [address], 07/02/2024 03:09:05 07/01/19 25 07/01/2024 CBC WITH DIFFE RENTI AL/PL ATELE T immature grans (abs) 0.0 x10e3 /uL 0.0-0. 1 Not Available [facility] ([facility]) [address] [facility], [place], [address], 07/02/2024 03:09:05 Result Notes None recorded. Problems Name Problem SNOMED Code Status Onset Date Resolution Date Notes Provider Name and Address Organization Details Recorded Time Allergic rhinitis 17163107 Active 2019 Tia Rm APN, FNP-C Attn: Doug omer,[address] [place], [place], [address] [place] [address] 2, [place] - [facility] 0 15:35:02 Chronic low back pain 125635792 Active 2019 Tia Rm APN, FNP-C Attn: Doug omer,[address] [place], [place], [address] [place] [address] 2, [place] - [facility] 0 15:35:05 Mixed anxiety and depressive disorder 547427120 Active 2019 Tia Rm APN, FNP-C Attn: Doug omer,[address] [place], [place], [address] [place] [address] 2, [place] - [facility] 0 15:35:09 Gastroesop hageal reflux disease without esophagiti s 858431696 Active 2019 Tia Rm APN, FNP-C Attn: Doug g,[address] [place] [address], [address] [place] [address] 2, [place] - [facility] 0 15:35:11 Hypothyroi dism 79513908 Active 2019 Tia Rm APN, FNP-C Attn: Doug omer,[address] [facility], [place], [address], [place] - [facility] 0 15:35:13 Tobacco user 036662604 Active 2019 Tia Rm APN, [employer]-C Attn: Doug omer,[address] [facility], [place], [address], [place] [facility] 0 15:35:17 Reactive airway disease 258773351506 Active 2021 Tia Rm APN, [employer]-C Attn: Doug omer,[address] [facility], [place], [address], [place] - [facility] 2 14:56:53 Overweight 265144528 Active 2021 Tia Rm APN, [employer] Attn: Doug omer,[address] [facility], [place], [address], [place] - [facility] 2 14:56:55 Chronic recurrent sinusitis 445615900 Active 2021 Tia Rm APN, [employer]C Attn: Doug omer,[address] [facility], [place], [address], [place] - [facility] 2 11:20:14 Acute nontraumat ic kidney injury 578326355899 103 Active 2023 Mild, labs 03/2024, not known how long present. Stop ibu and recheck one month Alessandra ruvalcaba MD Attn: Doug omer,[address] [facility], [place], [address], [place] - [facility] 4 23:32:11 Problem Notes None recorded. Procedures Surgical History Date Name Laterality Status Provider Name and Address Organization Details Recorded Time Back Surgery completed Angelic García MA [facility] 02/18/2020 14:47:27 section completed Angelic García MA [facility] 02/18/2020 14:47:54 Cholecystectomy completed Angelic García MA [facility] 02/18/2020 14:48:07 Imaging Results None recorded. Procedure Notes None recorded. Medical Equipment None Reported. Allergies Allergen ID Allergen Name Allergen Category Reaction Reaction Severity Criticality Documentation Date Start Date Code Code System Note Provider Name and Address Organization Details Recorded Time 879588 Product containin g penicilli n (product) medicatio n rash Not available Not available 02/18/2020 37353 8001 SNOMED AngelicLURDES [place], [place] - [facility] 0 14:49:41 997324 Bactrim medicatio n hives Not available Not available 02/18/2020 38461 9 RxNorm Angelicnadege García MA null, [place] - [facility] 0 14:49:49 Medications Name Sig Start Date Stop Date Status Note LastModified by Organization Details LastModified Time Singulair 10 mg tablet Take 1 tablet every day by oral route. 07/24 completed states doesn't help Not Available Not Available Not Available cyclobenz aprine 10 mg tablet Take 1 tablet 3 times a day by oral route as needed. active Not Available Not Available No t Available amoxicill in 500 mg capsule TAKE 1 CAPSULE BY MOUTH THREE TIMES DAILY FOR 10 DAYS 01/13 completed Not Available Not Available Not Available promethaz ine-DM 6.25 mg-15 mg/5 mL oral syrup TAKE 5 ML BY MOUTH EVERY 4 HOURS NEEDED 06/29 completed Not Available Not Available Not Available prednison e 10 mg tablet TAKE 3 TABLETS BY MOUTH ONCE DAILY FOR 2 DAYS THEN TAKE 2 TABLETS DAILY FOR 2 DAYS THEN TAKE 1 TABLET DAILY FOR 2 DAYS IN THE MORNING WITH FOOD 01/13 completed Not Available Not Available Not Available doxycycli ne hyclate 100 mg capsule TAKE 1 CAPSULE BY MOUTH TWICE DAILY FOR 10 DAYS 08/17 completed Not Available Not Available Not Available clindamyc in HCl 300 mg capsule TAKE 1 CAPSULE BY MOUTH EVERY 6 HOURS FOR 5 DAYS active Not Available Not Available No t Available azithromy reuben 250 mg tablet TAKE 2 TABLETS BY MOUTH ON DAY 1, AND THEN TAKE 1 TABLET BY MOUTH ONCE A DAY ON DAY 2 THROUGH DAY 5 07/31 completed Not Available Not Available Not Available ibuprofen 800 mg tablet TAKE 1 TABLET BY MOUTH THREE TIMES DAILY prn 2024 active Not Available Not Available Not Avai lable benzonata te 200 mg capsule TAKE 1 CAPSULE BY MOUTH THREE TIMES DAILY NEEDED FOR COUGH 07/31 completed Not Available Not Available Not Available prednison e 20 mg tablet TAKE 2 TABLETS BY MOUTH ONCE DAILY FOR 5 DAYS 08/17 completed Not Available Not Available Not Available alprazola m 0.5 mg tablet TAKE 1 TABLET BY MOUTH THREE TIMES DAILY NEEDED FOR ANXIETY 01/13 completed Not Available Not Available Not Available famotidin e 20 mg tablet TAKE 1 TABLET BY MOUTH TWICE DAILY 2024 active Not Available Not Available Not Avai lable benzonata te 100 mg capsule Take 1 capsule 3 times a day by oral route as needed. 08/17 completed Not Available Not Available Not Available doxycycli ne monohydra te 100 mg capsule TAKE 1 CAPSULE BY MOUTH TWICE DAILY FOR 10 DAYS 07/31 completed Not Available Not Available Not Available levothyro xine 50 mcg tablet Take 1 tablet by mouth once daily 2024 active change to 6 days of week 2/2 TSH suppress ed 03/2024 labs. Recheck one month Not Available Not Available Not Available cephalexi n 500 mg capsule Take 1 capsule 3 times a day by oral route for 10 days. 01/24 completed Not Available Not Available Not Available nicotine 21 mg/24 hr daily transderm al patch APPLY 1 PATCH TOPICALL Y ONCE DAILY 07/24 completed Not Available Not Available Not Available methylpre dnisolone 4 mg tablets in a dose pack TAKE BY MOUTH DIRECTED ON INSIDE OF PACKAGE 07/31 completed Not Available Not Available Not Available albuterol sulfate HFA 90 mcg/actua tion aerosol inhaler INHALE 2 PUFFS BY MOUTH EVERY 4 HOURS NEEDED FOR COUGH active Not Available Not Available No t Available fluticaso ne propionat e 50 mcg/actua tion nasal spray,esperanza pension USE 1 SPRAY(S) IN NOSTRIL( S) ONCE DAILY active Not Available Not Available No t Available buspirone 15 mg tablet TAKE 1 TABLET BY MOUTH TWICE DAILY 2024 active Not Available Not Available Not Avai lable escitalop afua 20 mg tablet TAKE 1 TABLET BY MOUTH ONCE DAILY 2024 active Not Available Not Available Not Avai lable Astepro Allergy 205.5 mcg (0.15 %) nasal spray Solon 1 spray twice a day by intranas al route. 2024 active Not Available Not Available Not Avai lable Vitals Date Recorded Body height Body mass index (BMI) Body weight Oxygen saturation Oxygen saturation in Arterial blood by Pulse oximetry Heart rate Respiratory rate Body temperature Systolic And Diastolic Provider Name and Address Organization Details Last Updated DateTime 4 160.02 cm 27.8 kg/m2 42837 g 97 % 97 % 90 /min 16 /min 97.5 [degF] 122/78 mm[Hg] Ally Hernandez [facility] 4 10:52:51 Date Recorded Body height Body mass index (BMI) Body weight Oxygen saturation Oxygen saturation in Arterial blood by Pulse oximetry Respiratory rate Body temperature Heart rate Systolic And Diastolic Provider Name and Address Organization Details Last Updated DateTime 5 160.02 cm 28.3 kg/m2 28456.7 8 g 97 % 97 % 16 /min 97.3 [degF] 72 /min 134/80 mm[Hg] Ally Hernandez Glendy [facility] 5 14:25:06 Date Recorded Body height Body mass index (BMI) Body weight Oxygen saturation Oxygen saturation in Arterial blood by Pulse oximetry Heart rate Respiratory rate Body temperature Systolic And Diastolic Provider Name and Address Organization Details Last Updated DateTime 3 160.02 cm 26.9 kg/m2 02437.0 4 g 97 % 97 % 74 /min 16 /min 97.7 [degF] 130/74 mm[Hg] Ally Hernandez [facility] 3 11:05:32 Date Recorded Body height Body mass index (BMI) Body weight Oxygen saturation Oxygen saturation in Arterial blood by Pulse oximetry Heart rate Respiratory rate Body temperature Systolic And Diastolic Provider Name and Address Organization Details Last Updated DateTime 4 160.02 cm 28.3 kg/m2 37189.4 2 g 97 % 97 % 88 /min 16 /min 97.5 [degF] 147/84 mm[Hg] Nika Bernardo MA [facility] 4 17:00:36 Date Recorded Body height Body mass index (BMI) Body weight Oxygen saturation Oxygen saturation in Arterial blood by Pulse oximetry Respiratory rate Body temperature Heart rate Systolic And Diastolic Provider Name and Address Organization Details Last Updated DateTime 4 160.02 cm 29.1 kg/m2 26550.1 5 g 97 % 97 % 16 /min 97.8 [degF] 104 /min 130/86 mm[Hg] VIN Guajardo [facility] 4 15:19:32 Social History Question Answer Notes LastModified by Organizat ion Details LastModified Time Tobacco Smoking Status Current Every Day Smoker Angelic García MA [facility], [place] - [facility] 02/18/2020 14:53:41 Do You Have An Advance Directive? No Information not available 02/18/2020 Are You Blind Or Do You Have Difficulty Seeing? Yes Glasses Information not available 08/01/2023 What Is Your Level Of Caffeine Consumption? Moderate Coffee Information not available 06/29/2020 How Much Tobacco Do You Chew? None Information not available 02/18/2020 In The 14 Days Before Symptom Onset, Have You Had Close Contact With A Laboratory-confir med COVID-19 While That Case Was Ill? No Information not available 02/18/2020 In The 14 Days Before Symptom Onset, Have You Had Close Contact With A Person Who Is Under Investigation For COVID-19 While That Person Was Ill? No Information not available 02/18/2020 Have You Been To An Area Known To Be High Risk For COVID-19? No Information not available 02/18/2020 Are You Deaf Or Do You Have Serious Difficulty Hearing? No Information not available 06/29/2020 What Type Of Diet Are You Following? REGULAR Information not available 02/18/2020 Which Illicit Or Recreational Drugs Have You Used? Denied Information not available 02/18/2020 Education 12 Information no t available 02/18/2020 Are There Any Guns Present In Your Home? No Information not available 02/18/2020 Hard Of Hearing Or Deaf In One Or Both Ears? No Information not available 02/18/2020 Legally Blind In One Or Both Eyes? No Information no t available 02/18/2020 Marital Status Informatio n not available 02/18/2020 What Was The Date Of Your Most Recent Tobacco Screening? 08/17/2024 Information not available 08/17/2024 Performs Monthly Self-breast Exam? Yes Information no t available 02/18/2020 What Is Your Relationship Status? Information not available 01/13/2021 Do You Use Your Seat Belt Or Car Seat Routinely? Yes Information not available 06/29/2020 Seat Belts Used Routinely Yes Information not available 02/18/2020 Are You Sexually Active? No Information not available 06/29/2020 Smoke Alarm In Home Yes Information not available 02/18/2020 Do You Have Smoke And Carbon Monoxide Detectors In Your Home? Yes Information not available 06/29/2020 At What Age Did You Start Smoking Tobacco? 17 Information not available 02/18/2020 Are You Passively Exposed To Smoke? Yes Information no t available 06/29/2020 How Much Tobacco Do You Smoke? 1 PPD [email or web address] Information not available 02/17/2024 General Stress Level Medium [email or web address] Information not available 03/21/2020 Do You Use Sunscreen Routinely? No Information not available 02/18/2020 Has Tobacco Cessation Counseling Been Provided? Yes [email or web address] Information not available 01/24/2022 On What Date Was Tobacco Cessation Counseling Provided? 08/17/2024 Information not available 08/17/2024 How Many Years Have You Smoked Tobacco? 52 08/17/24 Information not available 08/17/2024 Sex: Female Functional Status Question Answer Note LastModified by Organizat ion Details LastModified Time Do you use any illicit or recreational drugs? No Information not available 06/29/2020 Do you or have you ever used any other forms of tobacco or nicotine? No Information not available 06/29/2020 What is your level of alcohol consumption? None Information not available 02/18/2020 Do you or have you ever used smokeless tobacco? Never used smokeless tobacco Information not available 02/18/2020 Are you currently employed? No Information not available 06/29/2020 Are you able to care for yourself independently? Yes Information not available 06/29/2020 What is your occupation? Retired Information not available 02/18/2020 Do you or have you ever used e-cigarettes or vape? Never used electronic cigarettes Information not available 02/18/2020 What is your exercise level? None [email or web address] Information not available 01/24/2023 Mental Status Question Answer Note LastModified by Organization D etails LastModified Time Do you feel stressed (tense, restless, nervous, or anxious, or unable to sleep at night)? [id number] Information not available 08/17/2024 Family History Relationship Description Onset Age of this Age Resolved Age Notes LastModified by Organization Details LastModified Time Mother Disorder of thyroid gland [email or web address] Not available 2019 14:52:51 Mother Diabetes mellitus rreiterma Not available 2019 14:53:05 Mother Hypertensive disorder rreiterma Not available 2019 14:53:18 Mother Hypercholest erolemia rreiterma Not available 2019 14:53:32 Father Diabetes mellitus rreiterma Not available 2019 14:53:00 Father Hypertensive disorder rreiterma Not available 2019 14:53:13 Father Hypercholest erolemia rreiterma Not available 2019 14:53:25 Medical History Condition Response Coronary Artery Disease N Other N Atrial Fibrillation N High Blood Pressure N Depression Y COPD N Blood Clots N Anxiety Disorder Y Muscle, Joint, or Bone Problems N Acid Reflux (GERD) N Cancer N Stroke N ADHD N High Cholesterol N Liver Disease N Schizophrenia N Headaches N Thyroid Problems Y Kidney or Bladder Problems N GI Problems N Eating Disorder N Skin Problems N Anemia N Heart Attack ([place]) N Diabetes N Seizures/Epilepsy N Asthma N Allergies N Substance Abuse N Hepatitis N Heart Failure N Osteoporosis N Gynecological History Statement/Question Response Age at Menarche 15 Current Control Method Menopause Age at First Child 29 Obstetrics History GPAL:G 2 P 2 0 0 2 Type Value Full Term 2 Living 2 Total 2 Immunizations Vaccine Type Date Status Note Provider Name and Address Organization Details Recorded Time COVID-19, mRNA, LNP-S, PF, 100 mcg/0.5mL dose or 50 mcg/0.25mL dose 09/21/19 completed Tia Rm, CLINICAL STATISTICS MANAGER, [employer] Attn: Accounting,[address] [facility], [place], [address], [facility] 01/24/2022 11:13:21 COVID-19, mRNA, LNP-S, PF, 100 mcg/0.5mL dose or 50 mcg/0.25mL dose 10/19/19 21 completed Tia Rm, CLINICAL STATISTICS MANAGER, [employer] Attn: Accounting,[address] [facility], [place], [address], [facility] 01/24/2022 11:13:21 Influenza, high-dose, quadrivalent, PF 06/29/19 cancelled patient objection Tia Rm, CLINICAL STATISTICS MANAGER, [employer] Attn: Accounting,[address] [facility], [place], [address], [facility] - [facility] 06/29/2020 12:24:35 Pneumococcal conjugate PCV 13 01/14/20 21 completed Angelic García MA [facility], [place] - [facility] 01/13/2021 14:24:58 Past Encounters Encounter ID Performer Location Encounter Start Date Encounter Closed Date Diagnosis/Indication Diagnosis SNOMED-CT Code Diagnosis ICD10 Code Diagnosis Note [id number] MD Justice Sandhu (Adult Med) [address] [place] [address] 02/18/2020 14:42:15 02/19/2020 12:12:44 Adult health examination 884845679 Z00.01 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 advised Mixed anxi ety and depressive disorder 482549004 F41.8 cont escitalopr am 20 mg qd, buspar 15 mg bid, was on xanax, dwp no benzos from this office Chronic low back pain 27 6921359 M54.5 back surgery in 2016, prn ibu Allergic rhinitis 494153 04 J30.9 cont montelukas t, will refill when due [id number] MD Justice Sandhu (Adult Med) [address] [place] [address] 03/21/2020 09:01:50 03/22/2020 07:32:15 Acute sinusitis 71866096 J01.90 sinus pressure with drainage, start kflex Cough 70200196 R05 dwp cough medication prnadvised covid testing if symptoms persist [id number] MD Justice Sandhu (Adult Med) [address] [place] [address] 06/29/2020 08:26:06 06/30/2020 07:29:14 Mixed anxiety and depressive disorder 430893646 F41.8 cont escitalopr am 20 mg qd, buspar 15 mg bid, was on xanax, dwp no benzos from this office Gastroesop hageal reflux disease without esophagitis 776622927 K21.9 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 Chronic low back pain 27 5496015 M54.5 back surgery in 2016, prn ibu [id number] MD Justice Sandhu (Adult Med) [address] [place] [address] 08/08/2020 10:07:32 08/09/2020 09:07:08 Dental abscess 811107255 K04.7 jaw swelling and pain, will send abx [id number] MD Justice Sandhu (Adult Med) [address] [facility] [place] [address] 01/13/2021 10:49:17 01/16/2021 09:41:27 Tobacco user 581514619 Z72.0 Smoking cessation encouraged .pt asked to try patches, used chantix in past and wellbutrin and did not like either Mixed anxi ety and depressive disorder 070104848 F41.8 cont escitalopr am 20 mg qd, buspar 15 mg bid, was on xanax, dwp no benzos from this office Gastroesop hageal reflux disease without esophagitis 399210311 K21.9 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 Reactive a irway disease 8833431432 06 J45.909 pt states she did not hvae copd, but uses singulair and inhaler, will cont with refills Upper resp iratory infection 00096937 J06.9 rhonchi clearing with cough, start zpack, and medrol dose packdwp r/b/sedwp to increase fluids, OTC cold med prn, rest, good handwashin g [id number] MD Justice Sandhu (Adult Med) [address] [place] [address] 01/24/2022 10:43:01 01/25/2022 08:27:05 Hypothyroidism 47049994 E03.9 cont levothyrox ine 50 mcg Mixed anxi ety and depressive disorder 677266390 F41.8 cont escitalopr am 20 mg qd, buspar 15 mg bid, was on xanax, dwp no benzos from this office Gastroesop hageal reflux disease without esophagitis 980920459 K21.9 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 Reactive a irway disease [id number] 06 J45.909 pt states she did not hvae copd, but uses singulair and inhaler, will cont with refills Chronic re current sinusitis 131643902 J32.9 not improved with kflex, will start doxy and schedule with ENT Right side sciatica [id number] M54.31 dwp exercises, pt declines PT, steroid also sentprn flexeril [id number] MD Justice Lomas (Adult Med) [address] [place] [address] 02/13/2022 12:40:47 02/14/2022 08:39:31 Chronic sinusitis 38172404 J32.9 [id number] MD Justice Lomas (Adult Med) [address] [place] [address] 02/27/2022 12:17:34 02/28/2022 08:03:36 Chronic sinusitis 75143154 J32.9 return if she has further problems [id number] MD Justice Sandhu (Adult Med) [address] [place] [address] 07/24/2022 11:13:33 07/25/2022 13:50:46 Hypothyroidism 89187029 E03.9 cont levothyrox ine 50 mcg Mixed anxi ety and depressive disorder 361269198 F41.8 cont escitalopr am 20 mg qd, buspar 15 mg bid, was on xanax, dwp no benzos from this office Gastroesop hageal reflux disease without esophagitis 767225496 K21.9 cont 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 Reactive a irway disease 6403711149 06 J45.909 pt states she did not have copd, but uses singulair and inhaler, will cont with refills [id number] MD Justice Sandhu (Adult Med) [address] [place] [address] 01/24/2023 10:41:07 01/30/2023 10:23:04 Chronic recurrent sinusitis 920553045 J32.9 sinus pressure with purulent drainage, start doxy Hypothyroidism 13837505 E03.9 cont levothyrox ine 50 mcg Mixed anxi ety and depressive disorder 562744576 F41.8 cont escitalopr am 20 mg qd, buspar 15 mg bid, was on xanax, dwp no benzos from this office Gastroesop hageal reflux disease without esophagitis 447129628 K21.9 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 Reactive a irway disease 6190790097 06 J45.909 pt states she did not have copd, but uses singulair and inhaler, will cont with refills Allergic rhinitis 566630 04 J30.9 resume montelukas t, dwp also starting flonasept saw senior outside sales representative for shots in [place], will refer to local provider Normal grief reaction 27 9234286 F43.20 just 2 days agoprinted some materials for support, [facility] contact info etc [id number] MD Justiec Sandhu (Adult Med) [address] [place] [address] 03/23/2024 15:15:23 03/24/2024 12:36:51 Acute bronchitis 08626624 J20.9 rhonchi clearing with cough, was given zpack, will send cough pills Acute sinusitis 10580032 J01.90 sinus pressure with drainage, start doxy [id number] MD Justice Sandhu (Adult Med) [address] [place] [address] 08/17/2024 14:13:32 08/18/2024 16:46:01 Hypothyroidism 87971816 E03.9 cont levothyrox ine 50 mcg, taking 6 out of 7 days to keep level stable Gastroesop hageal reflux disease without esophagitis 643317988 K21.9 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 Reactive a irway disease 1542329987 06 J45.909 pt states she did not have copd, but uses singulair and inhaler, will cont with refills Allergic rhinitis 889083 04 J30.9 resume montelukas t, patient not currently taking states it does not workdwp also starting flonasept saw senior outside sales representative for shots in [place], will refer to local provider Health Concerns Section Related Observation LastModified by Organization Detai ls LastModified Time None Recorded Concern Status LastModified by Organization Details LastModified Time None Recorded Advance Directives Directive N: Payers Insurance Date Sequence Insurance Name Policy Number Policy Yao Covered Member ID Yao Member ID Guarantor Name 07/24/2022 3 [facility] - DOS ON OR AFTER 2020 - DUAL ELIGIBLE (MEDICARE REPLACEMENT/AD VANTAGE - HMO) Kayleigh Weinberg [id number] Kayleigh Weinberg 07/24/2022 2 [place] Kayleigh Weinberg [id number] Kayleigh Weinberg 07/24/2022 1 [employer] (MEDICARE REPLACEMENT/AD VANTAGE - HMO) Kayleigh Weinberg [id number] Kayleigh Weinberg 07/24/2022 1 [place] Kayleigh Weinberg [id number] Kayleigh Weinberg 03/06/2024 1 UNSPECIFIED REMIT PAYOR Kayleigh Weinberg 08/14/2024 [place] [facility] Kayleigh Weinberg [id number] Kayleigh Weinberg 07/24/2022 1 [place] Kayleigh Weinberg [id number] Kayleigh Weinberg 07/24/2022 1 [employer] [place] (MEDICARE REPLACEMENT/AD VANTAGE - HMO) Kayleigh Weinberg [id number] Kayleigh Weinberg 07/24/2022 1 [place] [facility] Kayleigh Weinberg [id number] Kayleigh Weinberg 07/24/2022 2 [employer] (MEDICARE SUPPLEMENT) Kayleigh Weinberg [id number] Kayleigh Weinberg 03/21/2020 3 *SELF PAY* Garzon Lenard 08/14/2024 2 [place] OR [place]IC[place] REPLACEMENT PRIMARY) Kayleigh Weinberg [id number] Kayleigh Weinberg 08/04/2022 1 UNSPECIFIED REMIT PAYOR Kayleigh Weinberg 02/03/2022 1 UNSPECIFIED REMIT PAYOR Kayleigh Weinberg 07/24/2022 1 [facility] - DOS ON OR AFTER 2020 - DUAL ELIGIBLE (MEDICARE REPLACEMENT/AD VANTAGE - HMO) Kayleigh Weinberg [id number] Kayleigh Weinberg 07/24/2022 2 [place]IC[place] REPLACEMENT PRIMARY) Kayleigh Weinberg [id number] Kayleigh Weinberg 08/14/2024 1 [facility] (MEDICARE REPLACEMENT HMO) Kayleigh Weinberg [id number] Kayleigh Weinberg 01/30/2023 2 [place] [facility] Kayleigh Weinberg [id number] Kayleigh Weinberg Notes Date Note Type Note Provider Name and Address Organization Details Recorded Time 01/24/2023 text/html Sinusitis/Allerg yRepo rted by Patientpt c/o sinus issues. sneezing and wet cough. sx started a week ago. tried claritin ThyroidReported by PatientHPIFor onset/timing, patient reportsbetter. For context, patient reportsnormal thyroid levels. For associated symptoms, patient reportsno cold intolerance,no palpitations,no chest pain,no diarrhea,no dry skin,no tremor,no fatigue,no sleep difficulties,no skin changes, andno hair changes. Reflux/GERDReported by PatientHPIFor context, patient reportssmoker ____ppdandrelated to spicy foods. For symptoms, patient reportsasymptomatic. For severity, patient reportsimproving. For duration, patient reportspresent for 6-12 months. For associated symptoms, patient reportsno regurgitation,no shortness of breath,no chest pain, andno heartburn. Musculoskeletal PainReported by Patientc/o pain when walking in [employer], uses cart, pain in right upper leg/thigh, improves with standing still, states not joint pain but in the muscle- down the side.hx of lumbar fusion moved from [address] used to see senior outside sales representative in [place] Tia Rm APN, FNP-C Attn: Accounting,[address] [facility], [place], [address], [place] - [place] 01/24/2023 11:22:48 08/01/2023 text/html ThyroidReported by PatientHPIFor onset/timing, patient reportsbetter. For context, patient reportsnormal thyroid levels. For associated symptoms, patient reportsno cold intolerance,no palpitations,no chest pain,no diarrhea,no dry skin,no tremor,no fatigue,no sleep difficulties,no skin changes, andno hair changes. Reflux/GERDReported by PatientHPIFor context, patient reportssmoker ____ppdandrelated to spicy foods. For symptoms, patient reportsasymptomatic. For severity, patient reportsimproving. For duration, patient reportspresent for 6-12 months. For associated symptoms, patient reportsno regurgitation,no shortness of breath,no chest pain, andno heartburn. Musculoskeletal PainReported by Patientc/o pain when walking in [employer], uses cart, pain in right upper leg/thigh, improves with standing still, states not joint pain but in the muscle- down the side.hx of lumbar fusion moved from [address] used to see senior outside sales representative in [place] Tia Rm APN, FNP-C Attn: Accounting,[address] [facility], [place], [address], [place] 08/01/2023 11:20:10 02/17/2024 text/html ThyroidReported by PatientHPIFor onset/timing, patient reportsbetter. For context, patient reportsnormal thyroid levels. For associated symptoms, patient reportsno cold intolerance,no palpitations,no chest pain,no diarrhea,no dry skin,no tremor,no fatigue,no sleep difficulties,no skin changes, andno hair changes. Reflux/GERDReported by PatientHPIFor context, patient reportssmoker ____ppdandrelated to spicy foods. For symptoms, patient reportsasymptomatic. For severity, patient reportsimproving. For duration, patient reportspresent for 6-12 months. For associated symptoms, patient reportsno regurgitation,no shortness of breath,no chest pain, andno heartburn. Musculoskeletal PainReported by Patientc/o pain when walking in [employer], uses cart, pain in right upper leg/thigh, improves with standing still, states not joint pain but in the muscle- down the side.hx of lumbar fusion moved from [address] used to see senior outside sales representative in [place] Tia Rm APN, FNP-C Attn: Accounting, [address] [facility], [place], [address], [facility] - [facility] 02/19/2024 15:50:20 03/23/2024 text/html ROS as noted in the HPI wet cough, sinus pressure in face, sneezing, right ear pain. took steriod and abx- no relief. Tia Rm APN, FNP-C Attn: Accounting, [address] [facility], [place], [address], [facility] - [facility] 03/23/2024 15:35:29 08/17/2024 text/html ThyroidReported by PatientHPIFor onset/timing, patient reportsbetter. For context, patient reportsnormal thyroid levels. For associated symptoms, patient reportsno cold intolerance,no palpitations,no chest pain,no diarrhea,no dry skin,no tremor,no fatigue,no sleep difficulties,no skin changes, andno hair changes. Reflux/GERDReported by PatientHPIFor context, patient reportssmoker ____ppdandrelated to spicy foods. For symptoms, patient reportsasymptomatic. For severity, patient reportsimproving. For duration, patient reportspresent for 6-12 months. For associated symptoms, patient reportsno regurgitation,no shortness of breath,no chest pain, andno heartburn. Musculoskeletal PainReported by Patientc/o pain when walking in [employer], uses cart, pain in right upper leg/thigh, improves with standing still, states not joint pain but in the muscle- down the side.hx of lumbar fusion moved from [address] used to see senior outside sales representative in [place] Tia Rm APN, FNP-C Attn: Accounting, [address] [facility], [place], [address], [facility] 08/17/2024 18:20:16 OBGyn Episode Ob Episode Information Episode Created Date Number of Fetuses Patient Bloodtype Patient rh Status Prepregnancy Weight lbs Domestic Partner Domestic Partner Phone Father Name Artillery Meteorological Man Status 02/18/20 1 CLOSED Fetus Data First Name Last Name Admitted to NICU Weight (g) Sex Living Outcome Pediatric Complications Fetus ID Race Codes Race Delivery Type M Full Term [id number] Don Calculation Initial Don Date Initial Exam Date Initial Exam Provider Initial Ultrasound Date Last Menstrual Period Date Ultra Sound Weeks Gestation 0 Eighteen To Twenty Week Don Update Ultra Sound Date Fundal Height At Umbil Quickening Date Ultra Sound Latest Weeks Gestation Final Don Confirmed By Final Don Confirmed Date Final Don Date Ultra Sound Latest Days Gestation 0 0 Menstrual History Last Menstrual Date Menses Monthly On Bcp Conception Prior Menses Frequency Hcg Plus Date Menarche Onset Age Delivery Information Delivery Date Delivery Type Labor Anesthesia Weeks Gestation Incision Type Labor Labor Length Hrs Delivered By Post Complications Tubal Sterilization Discharge Date Comments 4 Discharge Information Feeding Method Contraceptive Method Maternal HG B and HCT Levels Ob Episode Information Episode Created Date Number of Fetuses Patient Bloodtype Patient rh Status Prepregnancy Weight lbs Domestic Partner Domestic Partner Phone Father Name Artillery Meteorological Man Status 02/18/20 1 CLOSED Fetus Data First Name Last Name Admitted to NICU Weight (g) Sex Living Outcome Pediatric Complications Fetus ID Race Codes Race Delivery Type M Full Term [id number] Don Calculation Initial Don Date Initial Exam Date Initial Exam Provider Initial Ultrasound Date Last Menstrual Period Date Ultra Sound Weeks Gestation 0 Eighteen To Twenty Week Don Update Ultra Sound Date Fundal Height At Umbil Quickening Date Ultra Sound Latest Weeks Gestation Final Don Confirmed By Final Don Confirmed Date Final Don Date Ultra Sound Latest Days Gestation 0 0 Menstrual History Last Menstrual Date Menses Monthly On Bcp Conception Prior Menses Frequency Hcg Plus Date Menarche Onset Age Delivery Information Delivery Date Delivery Type Labor Anesthesia Weeks Gestation Incision Type Labor Labor Length Hrs Delivered By Post Complications Tubal Sterilization Discharge Date Comments 5 Discharge Information Feeding Method Contraceptive Method Maternal HG B and HCT Levels
--- OUTSIDE RECORDS SUMMARY | 2024-11-29 12:57 | XMS_ITS ---
Author Organization [facility] [employer], [employer]. 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 [employer]ONZA Care Team Providers Care Preschool Disability Teacher Name Role Phone Unavailable Unavailable Unavailable MD Ravindra Yin MD Unavailable Unavailable Unavailable Unavailable Unavailable Unavailable Unavailable Unavailable MD Ravindra Yin MD Unavailable Unavailable Unavailable Unavailable Unavailable Encounters Encounter Date Encounter Type Encounter Diagnosis Care Provider Facility Start: 07-02-2024 [id number] Patient encounter procedure [facility] Start: 06-01-2024 07:49-0500 End: 06-01-2024 23:59-0500 Patient encounter procedure MD Ravindra Yin MD [facility] Start: 01-28-2024 09:42-0400 End: 01-28-2024 23:59-0400 Patient encounter procedure MD Ravindra Yin MD [facility] Start: 01-21-2024 12:45-0400 Patient encounter procedure MD Ravindra Yin MD [facility] Start: 01-21-2024 09:45-0400 End: 01-21-2024 23:59-0400 Patient encounter procedure MD Ravindra Yin MD [facility] Start: 01-07-2024 12:090400 End: 01-08-2024 23:59-0400 Patient encounter procedure [facility] Start: 12-11-2023 07:59-0400 End: 12-11-2023 23:59-0400 Patient encounter procedure MD Ravindra Yin MD [facility] Start: 12-10-2023 [id number] End: 12-10-2023 23:59-0400 Patient encounter procedure [facility] Medications Current Medications Medication Drug Class(es) Dates [...] BE BASED ON THE PRIMARY CLINICAL RECORDS. [employer] provides no warranty or guarantee of the accuracy or completeness of information in this document.The following information is based on time limited clinical information
[2024-11-29 12:58] VITALS: BP 150/66; PULSE 89; RESP 16; TEMP 36.7; O2SAT 98
--- NOTE | 2024-11-29 13:10 | ED.EXTPRO ---
HPI - Extremity Problem General Chief complaint: Extremity Problem,Nontraumatic Stated complaint: Left Hip x 1 week Time Seen by Provider: 11/29/24 12:55 Patient presents to [facility] with complaints of left lower back and left hip pain that radiates around to the front of the hip that began about 1 week ago. Patient denies any fall, trauma, or injury to the area. Patient does report a history of lower back surgery but has not had any problems since this was completed many years ago. Patient reports using the ibuprofen 800 mg with some relief of symptoms but over the last few days pain has gotten worse and is not helping. Patient reports unable to sleep due to pain with rolling over on the left side. Patient denies urinary symptoms, abdominal pain, bruising, swelling, numbness, or tingling. Related Data Home Medications ?Medication ?Instructions ?Recorded ?Confirmed ?Last Taken ?Type albuterol sulfate 90 mcg/actuation 1 inh inhalation QID PRN Shortness 02/07/20 04/09/21 Unknown History aerosol inhaler Of Breath Or Wheezing buspirone 15 mg tablet 15 mg PO TID 04/09/21 11/29/24 Unknown History famotidine 20 mg tablet 20 mg PO BID 04/09/21 11/29/24 Unknown History ibuprofen 800 mg tablet 800 mg PO TID 04/09/21 11/29/24 Unknown History levothyroxine 50 mcg tablet 50 mcg PO DAILY 04/09/21 11/29/24 Unknown History escitalopram oxalate 20 mg tablet mg 05/01/23 Unknown History Allergies Allergy/AdvReac Type Severity Reaction Status Date / Time Penicillins Allergy Rash Verified 11/29/24 13:02 sulfamethoxazole (From Allergy Hives Verified 11/29/24 13:02 Bactrim) trimethoprim (From Bactrim) Allergy Hives Verified 11/29/24 13:02 Review of Systems Constitutional: Constitutional: Reports as per HPI, Denies chills, Denies fatigue, Denies fever(s) and Denies weakness Eyes: Eyes: Reports no additional eye complaints ENT: Reports system reviewed and no additional complaints, except as documented Cardiovascular: Cardiovascular: Reports no additional cardiovascular complaints Respiratory: Respiratory: Reports no additional respiratory complaints Gastrointestinal: Gastrointestinal: Reports as per HPI, Denies abdominal pain, Denies diarrhea, Denies nausea and Denies vomiting Genitourinary: Genitourinary: Reports as per HPI, Denies hematuria, Denies nocturia, Denies genital lesions, Denies dysuria and Denies urinary incontinence Musculoskeletal: Musculoskeletal: Reports as per HPI, Reports back pain, Reports arthralgias, Denies joint swelling and Denies muscle cramps Integumentary/Breasts: Skin/Breast: Reports as per HPI, Denies pruritus, Denies erythema and Denies rash Neurologic: Reports system reviewed and no additional complaints, except as documented, Denies syncope and Denies headache(s) Psychiatric: Psychiatric: Reports no additional psychiatric complaints Endocrine: Endocrine: Reports no additional endocrine complaints Hematologic/Lymphatic: Hematologic/Lymphatic: Reports no additional hematologic/lymphatic complaints Allergic/Immunologic: Allergic/Immunologic: Reports no additional allergic/immunologic complaints [facility] Past Medical History Medical History (Updated 11/29/24 @ 13:41 by Antonia Whitley, [employer]) GERD (gastroesophageal reflux disease) Anxiety Surgical History Surgical History Previous back surgery spacer put in lumbar spine Hx of cholecystectomy Family History Family History Mother Family history non-contributory Social History Social History Smoking packs per day: 1 Smoking cigarettes per day: 20.0 Smoking status: Current every day smoker Tobacco type: cigarettes Alcohol intake: never Substance use: never Gender identity (if verbalized by the patient): Female Spiritual care concerns: No Exam Const: General: healthy appearing and no acute distress Nutritional Appearance: well nourished Orientation/consciousness: patient oriented x3 Limitations: no limitations Resp: Effort & Inspection: normal respiratory effort Auscultation: clear to auscultation bilaterally Cardio: Rate: regular rate Rhythm: regular rhythm GI: GI Palp: Yes Soft to palpation, No Tenderness to palpation present (GI), No Guarding due to palpation present (GI) and No Rebound tenderness present Auscultation: normal bowel sounds : General: Yes bladder normal to palpation and Yes no CVA tenderness Back/Spine/Pelvis: Back: no CVA tenderness Other: No vertebral tenderness to lumbar spine. No paraspinal tenderness. No SI joint tenderness. Skin: General skin exam: normal color Rashes: no rashes Wounds: no wounds Neuro: General: patient oriented x3 and moves all extremities Cranial nerves: Yes Nystagmus not present Speech: normal speech Gait exam (Neuro): Normal gait present Extrem: Left lower extremity: hip/thigh Details: normal to inspection, tenderness Location: of the hip and normal ROM; inspection normal, no swelling, ROM normal, no abrasions, no lacerations, no ecchymosis, no crepitus, no foreign bodies, no penetrating wound, no deformity and no unusual warmth Psych: Mental Status: mental status grossly normal Affect: normal affect Attitude: cooperative Course Course Level of Care: Express Care Visit Vital Signs Vital signs: Vital Signs Temperature 98.0 F 11/29/24 12:58 Pulse Rate 89 11/29/24 12:58 Respiratory Rate 16 11/29/24 12:58 Blood Pressure 150/66 H 11/29/24 12:58 Pulse Oximetry 98 11/29/24 12:58 Oxygen Delivery Room Air 11/29/24 12:58 Temperature 98.0 F 11/29/24 12:58 Pulse Rate 89 11/29/24 12:58 Respiratory Rate 16 11/29/24 12:58 Blood Pressure 150/66 H 11/29/24 12:58 Pulse Oximetry 98 11/29/24 12:58 Oxygen Delivery Room Air 11/29/24 12:58 MDM - Extremity (Nontraumatic) MDM Narrative Medical decision making narrative: Spoke with patient about overall symptoms. X-rays ordered. Likely arthritic in nature discussed treatment with steroids and muscle relaxers. Also spoke with patient about follow-up primary care physician for further imaging, PT, or referral to another provider. Discharge instructions reviewed with patient, as well as provided in writing per nursing staff. The instructions also include specific and strict return/GO TO THE ER as well as f/u information. All questions have been answered, and the patient deny any further questions with discharge and discharge plan. Differential Diagnosis Differential diagnosis: Likely gout, cellulitis, superficial thrombophlebitis, deep venous thrombosis of upper extremity and deep vein thrombosis of lower extremity Medical Records Attestation: I reviewed the patient's medical records. Imaging Data Attestation: I personally reviewed and interpreted this imaging study as follows: My impression: No acute fracture abnormality. Arthritic changes noted. Radiologist's impression: IMPRESSION: No acute osseous finding in the pelvis or left hip. Reviewed, dictated and finalized at location K. Discharge Plan Discharge Clinical Impression: Arthralgia of hip, left Patient Disposition: Home Condition: Stable Instructions: Antibiotic Form, Arthralgia (ED), Hip Pain (ED) Additional Instructions: Xray showed no fracture or Abnormality. There is some mild arthritis in your lumbar spine and your hip. Minimize activities that aggravate the condition The RICE protocol. Follow the RICE protocol as soon as possible after your injury: Rest your Hip and leg by not walking on it. Ice should be immediately applied to keep the swelling down. It can be used for 20 to 30 minutes, three or four times daily. Do not apply ice directly to your skin. Compression dressings, bandages or perri-wraps will immobilize and support your injured ankle. Elevate your ankle above the level of your heart as often as possible during the first 48 hours. Medication: Nonsteroidal anti-inflammatory drugs (NSAIDs) such as ibuprofen and naproxen can help control pain and swelling. Because they improve function by both reducing swelling and controlling pain, they are a better option for mild sprains than narcotic pain medicines. Please schedule a follow-up visit with your personal physician for further evaluation and treatment within 1week OR If your symptoms persist, change or worsen significantly before you can contact your personal physician then please, without delay, go to the emergency department for further evaluation. Patient Language: Kiswahili Prescriptions: New methocarbamol 750 mg tablet 750 mg PO TID Qty: 30 0RF methylprednisolone [Medrol (Pedrito)] 4 mg tablets,dose pack See Rx Instructions .ROUTE .COMPLEX Qty: 21 0RF Rx Instructions: for 6 days No Action albuterol sulfate 90 mcg/actuation Hfa Aerosol Inhaler 1 inh INHALATION QID PRN (Reason: Shortness Of Breath Or Wheezing) albuterol sulfate [ProAir HFA] 90 mcg/actuation HFA aerosol inhaler 2 puff inhalation QID PRN (Reason: shortness of breath or wheezing) Qty: 8.5 0RF ibuprofen 800 mg tablet 800 mg PO TID buspirone 15 mg tablet 15 mg PO TID famotidine 20 mg tablet 20 mg PO BID levothyroxine 50 mcg tablet 50 mcg PO DAILY escitalopram oxalate 20 mg tablet doxycycline hyclate 100 mg capsule 100 mg PO BID 10 Days Qty: 20 0RF benzonatate 200 mg capsule 200 mg PO TID PRN (Reason: cough) Qty: 15 0RF Follow-up/Referrals: Mcginnis,Tia Acuna APN [Primary Care Provider] - Time of Disposition: 13:41
== END 2024-11-29 13:44 | disposition home or self-care (01) ==
PROVIDERS: Emergency Provider Nurse Practitioner Family; PCP Nurse Practitioner Family
DX: M25.552 Pain in left hip (principal); F17.210 Nicotine dependence, cigarettes, uncomplicated; K21.9 Gastro-esophageal reflux disease without esophagitis; F41.9 Anxiety disorder, unspecified
CPT/HCPCS: 73502; 99213; G0463